=== PATIENT | male | born 1955 | race Two or more races ===

== ENCOUNTER 2017-02-14 10:24 | Day surgery (SDC) | payer OTHER, MEDICAID ==
[2017-02-14] MEDS ORDERED: LR 1,000 ML IV ONE (10:47)
[2017-02-14] MEDS ORDERED: LIDOCAINE 1% 5 ML SDV ID PRN (10:47)
[2017-02-14 11:35] LABS: ANION GAP 10 mEq/L (8-16); CALCIUM 9.1 mg/dL (8.5-10.4); CARBON DIOXIDE 23 mEq/l (22-31); CHLORIDE 109 mEq/L (97-110); CREATININE 0.6 mg/dL (0.7-1.3); GLOMERULAR FILTRATION RATE > 60; GLUCOSE 95 mg/dL (70-100); POTASSIUM 4.6 mEq/L (3.5-5.2); SODIUM 142 mEq/L (134-144); SPECIMEN HEMOLYSIS 121
[2017-02-14] MEDS ORDERED: MIDAZOLAM 2 MG/2 ML VIAL ONE (13:12)
[2017-02-14] MEDS ORDERED: PROPOFOL/EMULSION 500 MG/50 ML BOTTLE IV ONE (13:18)
[2017-02-14] MEDS ORDERED: fentaNYL 100 MCG/2 ML INJ ONE ×2 (13:18→14:09)
--- NOTE | 2017-02-14 14:19 | GPN ---
[f rep st] PROCEDURE NOTE DATE OF PROCEDURE: 02/14/2017 PROCEDURE PERFORMED: Colonoscopy with polypectomy. INDICATION: Surveillance of a personal history of colon polyps. CONSENT: Procedure consent was obtained from the patient after the risks and benefits of colonoscop y and monitored anesthesia care were discussed in detail. All questions were answered and informed consent was obtained. The patient is competent to make his own medical decisions. COMPLICATIONS: None. ESTIMATED BLOOD LOSS: None. MODEL BUILDER: Santosh Thomas MD ENDOSCOPY STAFF: Cherry and . ANESTHESIOLOGY: Provided by Dr. Rosario. DESCRIPTION OF PROCEDURE: The patient was placed into the left lateral decubitus position. Propofo l was administered through his IV until he was comfortable. A digital rectal exam was performed. T he Olympus endoscope was placed into the anal canal and advanced into the cecum, identified by the a ppendiceal orifice and ileocecal valve, as well as the confluence of the tenia coli. All mucosal dubose rfaces were examined in their entirety and the retroflexed view of the rectum was performed. The qu ality of the bowel cleanse was excellent. Digital rectal exam revealed external and internal hemorrhoids. The largest internal hemorrhoid was grade 2 in size. The prostate was smooth and without mass or lesion. The sphincter tone was somew hat diminished, but this may be due to propofol effect. The Olympus endoscope was placed into the a nal canal and advanced into the cecum with some difficulty through the sigmoid colon due to looping. Manual pressure was provided to allow intubation of the cecum. Upon withdrawal of the Olympus end oscope, a 6 mm transverse colon polyp was identified. This was sessile in nature and removed comple tely with a cold biopsy technique. The sigmoid colon was redundant and tortuous but otherwise unrem arkable. A retroflexed view of the rectum revealed grade 2 internal hemorrhoids but was otherwise u nremarkable. IMPRESSION: 1. 6 mm transverse colon polyp, removed by cold biopsy technique entirely and sent to Pathology for analysis. 2. Tortuous sigmoid colon. 3. Grade 2 internal hemorrhoids. 4. Small non-thrombosed external hemorrhoids. RECOMMENDATIONS: 1. Pathology results will be obtained. 2. A surveillance colonoscopy in 5 years is recommended. 3. He may resume aspirin for cardioprotective benefits which he normally takes. 4. High-fiber diet. 5. Follow up in GI clinic as previously planned. Gene #: [id number]/MODL
--- NOTE | 2017-02-14 14:29 | GPN ---
[f rep st] PROCEDURE NOTE DATE OF PROCEDURE: 02/14/2017 PROCEDURE PERFORMED: Esophagogastroduodenoscopy. ASSISTANTS: Per endoscopy staff, include Cherry and Judah. ANESTHESIOLOGY: Dr. Ayoub. PROCEDURE COMPLICATIONS: None. ESTIMATED BLOOD LOSS: 0 mL. PROCEDURE INDICATION: Chest pain, heartburn. PROCEDURE DESCRIPTION: Consent was obtained from the patient after the risks of endoscopy and monit ored anesthesia care were discussed in detail. Informed consent was obtained from the patient. He is competent to make his own medical decisions. Procedure monitoring is continuous including blood pressure, heart rate, telemetry, oxygen saturation, and respiratory rate. DESCRIPTION OF PROCEDURE: The patient was placed into the left lateral decubitus position with the head of the bed at 30 degrees. An oral bite block was placed. Oxygen was administered. Propofol w as given by IV. Once the patient was comfortable, the Olympus endoscope was placed into the hypopha rynx. The tubular esophagus was intubated under direct visualization. The endoscope was ultimately advanced into the second portion of the duodenum and all mucosal surfaces were examined including a retroflexed view of the gastric cardia. FINDINGS: The esophagus exhibited a ringed appearance with longitudinal furrows in the middle esoph amber. The GE junction and Z-line were located at 36 cm and were regular and without abnormality. B iopsies of the middle of the esophagus were taken for evaluation of possibly eosinophilic changes gi jayson the ringed appearance to the esophagus. The stomach was normal in its entirety including a retroflexed view of the cardia. The pylorus was patent and normal. The duodenum was normal to the second portion. IMPRESSIONS: 1. Heartburn. 2. Chest pain, noncardiac, although the cause of this is unknown; the ringed appearance to the esop hagus with longitudinal furrows do suggest the possibility of eosinophilic esophagitis and biopsies for this were taken. 3. The stomach and duodenum were normal in their entirety without abnormality. RECOMMENDATIONS: 1. Continue outpatient medications. 2. Await biopsy results from the esophagus. 3. Colonoscopy for surveillance of colon polyps will be performed today under the same anesthesia. 4. Follow up will be in the GI office to review his biopsies and discuss treatment planning within the next few weeks. 5. Soft mechanical diet for today. 6. Avoid nonsteroidal medications but cardioprotective aspirin is appropriate. /[id number]/MODL
== END 2017-02-14 15:25 | disposition home or self-care (01) ==
LOC: FSGY 10:24
PROVIDERS: ATTEND Internal Medicine Gastroenterology
PROC: 0DB58ZX Excision of Esophagus, Via Natural or Artificial Opening Endoscopic, Diagnostic (ICD-10-PCS; principal; 2017-02-14 12:00)
PROC: 0DJ08ZZ Inspection of Upper Intestinal Tract, Via Natural or Artificial Opening Endoscopic (ICD-10-PCS; principal; 2017-02-14 12:00)
PROC: 0DJD8ZZ Inspection of Lower Intestinal Tract, Via Natural or Artificial Opening Endoscopic (ICD-10-PCS; principal; 2017-02-14 12:00)
PROC: 0DBL7ZX Excision of Transverse Colon, Via Natural or Artificial Opening, Diagnostic (ICD-10-PCS; principal; 2017-02-14 12:00)
DX: R12 Heartburn (principal); R07.9 Chest pain, unspecified; D12.3 Benign neoplasm of transverse colon; K64.1 Second degree hemorrhoids; I25.10 Atherosclerotic heart disease of native coronary artery without angina pectoris; I25.2 Old myocardial infarction; Z95.1 Presence of aortocoronary bypass graft; I10 Essential (primary) hypertension; Z86.010 Personal history of colon polyps
CPT/HCPCS: J2250; J2704; J3010

== ENCOUNTER 2017-12-12 13:58 | Observation (INO) | payer OTHER, MEDICAID ==
--- NOTE | 2017-12-12 14:11 | CPEKG ---
Heart Rate: 57 RR Interval: 1053 P-R Interval: 168 QRSD Interval: 100 QT Interval: 420 QTC Interval: 409 P Hartshorne: 49 QRS Hartshorne: 24 T Wave Hartshorne: 45 EKG Severity - BORDERLINE ECG - EKG Impression: SINUS RHYTHM EKG Impression: PROBABLE LEFT ATRIAL ABNORMALITY Electronically Signed By: Shahrzad Almanzar 12-Dec-2017 16:27:27
--- NOTE | 2017-12-12 14:16 | EDPHY ---
H & P Stated Complaint: FISHMAN, CP HPI/ROS: CHIEF COMPLAINT: Chest pain, headache HISTORY OF PRESENT ILLNESS: This patient is a Indian speaking 62 year old male with history of CABG, hypertension, diabetes, and hyperlipidemia complaining of chest pain and headache onset today. He recently returned from [place] where he was prescribed additional antihypertensives (Micardis 80mg) due to hypertension with BP in the 180s systolic. He sought care at that time due to dizziness and blurred vision, which have resolved. He has been recording his blood pressure at home and taking his medications as directed. , he woke from sleep suddenly with chest pain. Monday he had continued chest pain. Today, he continued to have headache and chest pain, and became concerned regarding his chest pain. He has not taken any OTC medications for headache. Currently, he feels fairly well but endorses a small amount of left- sided chest pain. Nothing seems to make it better or worse. He thinks he feels much better in general since his blood pressure is reduced. He is followed by the [facility] here in [place]. He denies current headache, shortness of breath, vomiting, diarrhea, urinary complaints, or other associated symptoms. HPI obtained via flower cutter at bedside. REVIEW OF SYSTEMS: A ten point review of systems was performed and is negative with the exception of the items mentioned in the HPI. Past medical history: 1. Hypertension (Lisinopril 20mg, Micardis 80mg, Metoprolol 25mg) 2. Gastritis (Omeprazole 40mg) 3. Hyperlipidemia (Atorvastatin 40mg) 4. Diabetes (diet controlled) 5. CAD (ASA 81mg at night) Past surgical history: CAD s/p 3-vessel bypass surgery in 2008. Family history: Diabetes. Negative for heart or vascular disease. Social history: Indian-speaking only. . Nonsmoker. No alcohol use. Retired. General Appearance: Alert. Vital signs reviewed. 139/81 Eyes: Pupils equal and round, no conjunctival injection, no discharge. Anicteric. ENT, Mouth: Mucous membranes are moist, no oropharyngeal erythema or edema. Neck: No lymphadenopathy, supple. Respiratory: Lungs are clear to auscultation; no wheezes, rales, or rhonchi. Cardiovascular: Regular rate and rhythm; no murmur, rub, or gallop. Gastrointestinal: Abdomen is soft and nontender, no masses or organomegaly, bowel sounds normal. Skin: Warm and dry, no rashes on exposed skin, normal color. Back: Nontender to palpation over the thoracolumbar spine. No CVAT. Extremities: No lower extremity edema, no calf tenderness or swelling. Neurological: Alert and oriented. Moving all four extremities easily and equally. Psychiatric: Normal affect. - Personal History Current Tetanus/Diphtheria Vaccine: Yes Current Tetanus Diphtheria and Acellular Pertussis (TDAP): Yes Tetanus Vaccine Date: <10 YEARS - Medical/Surgical History Hx Asthma: No Hx Chronic Respiratory Disease: No Hx Diabetes: Yes Hx Cardiac Disease: Yes Hx Renal Disease: No Hx Cirrhosis: No Hx Alcoholism: No Hx HIV/AIDS: No Hx Splenectomy or Spleen Trauma: No Other PMH: PMH:HTN,DM,gastritis. PSH:CABG 3x, - Social History Smoking Status: Never smoked Constitutional: Initial Vital Signs Temperature (C) 36.9 C 12/12/17 14:08 Heart Rate 60 12/12/17 14:08 Respiratory Rate 20 12/12/17 14:08 Blood Pressure 140/86 H 12/12/17 14:08 O2 Sat (%) 96 12/12/17 14:08 O2 Delivery Mode Room Air Allergies/Adverse Reactions: No Known Allergies Allergy (Verified 12/12/17 14:06) Home Medications: Medication Instructions Recorded Aspirin [Aspirin 81mg (*)] 81 mg PO HS 12/12/17 Atorvastatin Calcium [Lipitor 40 40 mg PO HS 12/12/17 mg (*)] Lisinopril [Zestril 20 mg (*)] 20 mg PO DAILY 12/12/17 Metoprolol Tartrate [Lopressor 25 25 mg PO BID 12/12/17 mg (*)] Omeprazole 40 mg PO BID 12/12/17 Telmisartan 80 mg PO DAILY PRN 12/12/17 Medical Decision Making - Diagnostics EKG Interpretation: The 12 lead EKG was interpreted by myself. See hard copy and/or "tracemaster" electronic copy for interpretation. Imaging: I viewed and interpreted images myself ED Course/Re-evaluation: 62 y/o male with history of hypertension, CABG, hyperlipidemia, and diabetes presents with chest pain. Exam unremarkable. Current BP 118/74. Plan for EKG, chest x-ray, labs including CBC, chemistries, troponin. Chest x-ray negative for acute processes. Troponin negative at 0.027. Laboratory studies otherwise unremarkable. HEART score 5, admission recommended. 15:[address] Sarabia, hospitalist. She accepts admission to PCU for chest pain. Differential Diagnosis: Chest pain including but not limited to myocardial ischemia, pulmonary embolus, chest wall pain, pleural inflammation and pulmonary infectious causes. - Data Points Laboratory Results: Laboratory Results 12/12/17 14:10 12/12/17 14:10 Medications Given: Discontinued Medications Acetaminophen (Tylenol) 650 mg PO Q4HRS PRN PRN Reason: Pain, Mild/Fever, Can Take PO Stop: 06/10/18 16:09 Last Admin: 12/13/17 08:19 Dose: 650 mg Aspirin (Aspirin) 325 mg PO EDNOW ONE Stop: 12/12/17 15:55 Last Admin: 12/12/17 16:20 Dose: 325 mg Influenza Virus Vaccine Quadrival (Fluarix Quad [id number]) 0.5 ml IM .ONCE ONE Stop: 12/13/17 09:51 Last Admin: 12/13/17 13:16 Dose: Not Given Lisinopril (Zestril) 20 mg PO DAILY [facility] Stop: 06/11/18 08:59 Last Admin: 12/13/17 12:45 Dose: 20 mg Metoprolol Tartrate (Lopressor) 25 mg PO BID [facility] Stop: 06/11/18 08:59 Last Admin: 12/13/17 12:44 Dose: 25 mg Pantoprazole Sodium (Protonix) 40 mg PO DAILY [facility] Stop: 06/10/18 16:29 Last Admin: 12/13/17 12:45 Dose: 40 mg Pneumococcal Polyvalent Vaccine (Pneumovax 23) 0.5 ml IM .ONCE ONE Stop: 12/13/17 09:51 Last Admin: 12/13/17 13:16 Dose: Not Given Departure - Departure Disposition: [facility] Inpatient Acute Clinical Impression: Chest pain Qualifiers: Chest pain type: other chest pain Qualified Code(s): R07.89 - Other chest pain Condition: Fair Report Scribed for: Shahrzad Almanzar Report Scribed by: Mansi Shoemaker Date of Report: 12/12/17 Time of Report: 14:51 Physician Review and Approval Statement: 01/16/18 14:16 Portions of this note were transcribed by the auditor medical claims. I, Dr. Shahrzad Almanzar, personally performed the history, physical exam, and medical decision- making; and confirmed the accuracy of the information in the transcribed note.
[2017-12-12] MEDS ORDERED: ASPIRIN 81 MG CHEWABLE TAB ONE (14:43)
[2017-12-12 14:47] LABS: PLATELET COUNT 163 10^3/uL (150-400)
[2017-12-12] MEDS ORDERED: ASPIRIN 325 MG TAB PO ONE (15:54)
--- NOTE | 2017-12-12 15:58 | PDGENHP ---
History and Physical - Chief Complaint chest pain - History of Present Illness 62 yo male with h/o DM, hypertension, hyperlipidemia and h/o CAD s/p CABG 8 yrs ago. Five days ago, he awoke with intense chest pain. The pain persisted the following day. He describes the pain as pressure initially. He endorses increased pain with exertion. The pain improves with rest. He endorses associated SOB, nausea and diaphoresis. He is currently chest pain free. He notes his blood pressure had been high and he wonders if that caused his pain. He recently returned from [place], where his SBP's were 180's. He was prescribed additional BP meds. He takes Metoprolol and Lisinopril, Telmisartan was a new medication which he started 2 days ago. BP now is 123/76. He has pre -diabetes, notes he is diet controlled but was previously on oral meds. Other cardiac risk factors include hyperlipidemia, hypertension, and family history of CAD, no PHD. In the ED, his EKG is non-ischemic. His initial troponin is negative. He is admitted to the hospital for further evaluation. History Information - Allergies/Home Medication List Allergies/Adverse Reactions: No Known Allergies Allergy (Verified 12/12/17 14:06) Home Medications: Aspirin [Aspirin 81mg (*)] 81 mg PO HS 12/12/17 [Last Taken 12/11/17] Atorvastatin Calcium [Lipitor 40 mg (*)] 40 mg PO HS 12/12/17 [Last Taken ] Lisinopril [Zestril 20 mg (*)] 20 mg PO DAILY 12/12/17 [Last Taken 12/12/17 09: 00] Metoprolol Tartrate [Lopressor 25 mg (*)] 25 mg PO BID 12/12/17 [Last Taken ] Omeprazole 40 mg PO BID 12/12/17 [Last Taken 12/12/17] Telmisartan 80 mg PO DAILY PRN 12/12/17 [Last Taken 12/12/17 11:30] I have personally reviewed and updated: family history, medical history, social history, surgical history - Past Medical History coronary artery disease, diabetes type 2, hypertension, hyperlipidemia Additional medical history: CAD s/p CABG 2007 - Surgical History Reports: coronary bypass surgery ( 2007) - Family History Positive for: diabetes type II - Social History Smoking Status: Never smoked Alcohol Use: None Additional social history: Lives with his in [place]. He doesn't currently work, now on disability, used to work in [employer]. Review of Systems Review of Systems: ROS: 10pt was reviewed & negative except for what was stated in HPI & below Physical Exam Physical Exam: Temp Pulse Resp BP Pulse Ox 36.9 C 54 L 18 120/78 96 12/12/17 14:08 12/12/17 15:38 12/12/17 15:38 12/12/17 15:38 12/12/17 15:38 Constitutional: no apparent distress Eyes: PERRL Ears, Nose, Mouth, Throat: moist mucous membranes Cardiovascular: regular rate and rhythym, no murmur, rub, or gallop Respiratory: no respiratory distress, clear to auscultation Gastrointestinal: normoactive bowel sounds, soft, non-tender abdomen Skin: warm Musculoskeletal: full muscle strength Neurologic: AAOx3 Psychiatric: interacting appropriately Lab Data & Imaging Review 12/12/17 14:10 12/12/17 14:10 WBC 5.70 10^3/uL (3.80-9.50) 12/12/17 14:10 RBC 4.30 10^6/uL (4.40-6.38) L 12/12/17 14:10 Hgb 13.7 g/dL (13.7-17.5) 12/12/17 14:10 Hct 40.0 % (40.0-51.0) 12/12/17 14:10 MCV 93.0 fL (81.5-99.8) 12/12/17 14:10 MCH 31.9 pg (27.9-34.1) 12/12/17 14:10 MCHC 34.3 g/dL (32.4-36.7) 12/12/17 14:10 RDW 12.3 % (11.5-15.2) 12/12/17 14:10 Plt Count 163 10^3/uL (150-400) 12/12/17 14:10 MPV 10.8 fL (8.7-11.7) 12/12/17 14:10 Neut % (Auto) 49.4 % (39.3-74.2) 12/12/17 14:10 Lymph % (Auto) 34.4 % (15.0-45.0) 12/12/17 14:10 [place] % (Auto) 13.0 % (4.5-13.0) 12/12/17 14:10 Eos % (Auto) 1.6 % (0.6-7.6) 12/12/17 14:10 Baso % (Auto) 0.5 % (0.3-1.7) 12/12/17 14:10 Nucleat RBC Rel Count 0.0 % (0.0-0.2) 12/12/17 14:10 Absolute Neuts (auto) 2.82 10^3/uL (1.70-6.50) 12/12/17 14:10 Absolute Lymphs (auto) 1.96 10^3/uL (1.00-3.00) 12/12/17 14:10 Absolute Monos (auto) 0.74 10^3/uL (0.30-0.80) 12/12/17 14:10 Absolute Eos (auto) 0.09 10^3/uL (0.03-0.40) 12/12/17 14:10 Absolute Basos (auto) 0.03 10^3/uL (0.02-0.10) 12/12/17 14:10 Absolute Nucleated RBC 0.00 10^3/uL (0-0.01) 12/12/17 14:10 Immature Gran % 1.1 % (0.0-1.1) 12/12/17 14:10 Immature Gran # 0.06 10^3/uL (0.00-0.10) 12/12/17 14:10 Sodium 140 mEq/L (135-145) 12/12/17 14:10 Potassium 5.1 mEq/L (3.5-5.2) 12/12/17 14:10 Chloride 104 mEq/L (97-110) 12/12/17 14:10 Carbon Dioxide 24 mEq/l (22-31) 12/12/17 14:10 Anion Gap 12 mEq/L (8-16) 12/12/17 14:10 BUN 18 mg/dL (7-23) 12/12/17 14:10 Creatinine 0.8 mg/dL (0.7-1.3) 01/16/18 14:10 Estimated GFR > 60 12/12/17 14:10 Glucose 114 mg/dL (70-100) H 12/12/17 14:10 Calcium 9.1 mg/dL (8.5-10.4) 12/12/17 14:10 Troponin I 0.027 ng/mL (0.000-0.034) 12/12/17 14:10 Specimen Hemolysis 149 12/12/17 14:10 Visualized and Interpreted Chest x-ray results: Yes Chest X-Ray results: no infiltrate Visualized and Interpreted EKG results: Yes EKG Interpretation: Positive for: normal sinsus rhythm Assessment & Plan Assessment: Chest pain in a 62 yo male with h/o CAD and prior CABG - Pain occurred at rest 5 days ago, but was associated with nausea, diaphoresis and SOB, which is concerning. Heart score 5. Initial EKG non-ischemic, trop neg. He is chest pain free now. -admit to PCU / tele -given full dose ASA -cont BB, statin, prn ntg -trend trop -treadmill NM stress test in am given risk factors (DM, htn, hld, +FHx, prior CABG) Hypertension - BP normal today with addition of ARB in [place] -cont outpt meds once med rec completed Hyperlipidemia - cont statin, check lipid status in am Pre-diabetes - diet controlled, bg 114 on arrival, check a1c. Full code DVT PPLX - SCD's, consider lovenox if prolonged hospitalization Dispo - obs
[2017-12-12] MEDS ORDERED: ACETAMINOPHEN 325 MG TAB PO PRN (16:10)
[2017-12-12] MEDS ORDERED: ONDANSETRON 4 MG/2 ML VIAL IVP PRN (16:10)
[2017-12-12] MEDS ORDERED: ONDANSETRON DISINTEGRATING 4 MG TAB PO PRN (16:10)
[2017-12-12] MEDS ORDERED: HYOSCYAMINE SULFATE 0.125 MG TAB PO PRN (16:15)
[2017-12-12] MEDS ORDERED: LIDOCAINE 2% VISCOUS 15 ML UDCUP PO PRN (16:15)
[2017-12-12] MEDS ORDERED: MAG HYDROX/AL HYDROX/SIMETH 30 ML UDCUP PO PRN (16:15)
[2017-12-12] MEDS: PANTOPRAZOLE SODIUM 40 MG TAB PO SCH (18:36)
[2017-12-13] MEDS ORDERED: NITROGLYCERIN 0.4 MG BTL SL PRN (01:19)
[2017-12-13] MEDS ORDERED: LISINOPRIL 20 MG TAB PO SCH (09:00)
[2017-12-13] MEDS ORDERED: TELMISARTAN 40 MG TAB PO PRN (09:00)
[2017-12-13] MEDS ORDERED: METOPROLOL TARTRATE 25 MG TAB PO SCH (09:00)
[2017-12-13] MEDS ORDERED: PANTOPRAZOLE SODIUM 40 MG TAB PO SCH (09:00)
--- NOTE | 2017-12-13 09:04 | CPEKG ---
Heart Rate: 58 RR Interval: 1034 P-R Interval: 156 QRSD Interval: 100 QT Interval: 440 QTC Interval: 433 P Rudd: 70 QRS Rudd: 52 T Wave Rudd: 68 EKG Severity - BORDERLINE ECG - EKG Impression: SINUS RHYTHM EKG Impression: PROBABLE LEFT ATRIAL ABNORMALITY Electronically Signed By: Tim Banks 17-Dec-2017 10:35:51
[2017-12-13] MEDS ORDERED: PNEUMOCOCCAL 0.5ML VACCINE VIAL IM ONE (09:50)
[2017-12-13] MEDS ORDERED: FLU VACC QS 2017-18 (3YR+)/PF 0.5 ML SYR (FLUARIX QUAD) IM ONE (09:50)
--- NOTE | 2017-12-13 10:14 | ASMTCASEMG ---
Living Arrangements What is your living Answers: With Spouse arrangement? Who do you live with? Type Of Residence What kind of residence do Answers: House you live in? Discharge Plan Comments Coordination Status Comments Notes: Pt is a 62 y/o man admitted for chest pain. Pt is having a stress test at some point during this hospitalization. Pt will most likely d/c independent when medically stable. CM available for changes. Plan: Independent Date Signed: 12/13/2017 10:14 AM Electronically Signed By:CITLALY Avalos
[2017-12-13 12:44] VITALS: RESP 14
[2017-12-13] MEDS: PANTOPRAZOLE SODIUM 40 MG TAB PO SCH (12:45)
--- NOTE | 2017-12-13 13:32 | CPR ---
[f rep st] NONINVASIVE CARDIAC PROCEDURE REPORT PROCEDURE PERFORMED: Exercise treadmill MPI study. INDICATION FOR PROCEDURE: Chest pressure, known history of coronary artery disease and bypass surgery. PRE: The patient is Sierra Leonean-speaking only and is seen with a professional armed security guard. After obtaining informed consent, the patient was placed on electrocardiogram. Initial EKG showing sinus rhythm, normal axis, RSR prime noted in V1, incomplete right bundle branch block, no significant ST or T-wave abnormalities. The patient denies any chest pain, shortness of breath, or symptoms suggesting ischemia. Initial blood pressure of 128/64, saturating 96% on room air. STRESS: The patient was placed on exercise treadmill. Following standard Nathaniel protocol, the following findings: 1. Patient exercised for 10 minutes. 2. 10.9 METS. 3. The patient obtained a heart rate of 152 BPM which was 96% of MPHR. 4. Patient had no chest pain or symptoms suggesting ischemia through testing. 5. Patient had no significant ST shift at peak exercise suggesting ischemia. 6. Patient had no arrhythmias noted during rest, stress, or recovery phases. 7. BP response: Resting BP 128/64. Peak blood pressure was 200/80. 8. Patient maintained SpO2 greater than 90% throughout testing. 9. Testing was stopped due to maximum effort. 10. Villafuerte treadmill score of 10, placing patient at low cardiovascular risk. RECOVERY: Patient recovered for 5 minutes, remained asymptomatic of symptoms suggesting ischemia. During that 5 minutes, his blood pressure and heart rate returned back to baseline. His vital signs were stable, remained asymptomatic. The patient was taken to Nuclear Medicine for post-stress imaging. IMPRESSION: A 62-year-old male with known history of coronary artery disease with previous coronary artery bypass grafting. Reporting episode of chest pressure last evening. Underwent exercise MPI study for evaluation of ischemia. No significant ST shifts at peak exercise suggesting of ischemia. No symptoms. No arrhythmias. Villafuerte treadmill score of 10, placing patient at low cardiovascular risk. Stress test results called to Hospitalist services. /[id number]/MODL MTDD
--- NOTE | 2017-12-13 14:58 | PDDCSUM ---
Discharge Summary Discharge Summary: 62 yo male with hx of CAD admitted with CP Trops negative Treadmill NM stress test with no acute findings no CP today Lipid panel at [facility] will d/c to day. no changes to home meds f/u with pcp in one week Ddx: -CAD -Chest pain -HLD -DM Exam: NAD AAOX3 RRR CTAB S/NT/ND NO LE EDEMA MEDS: SEE MED REC F/U: WITH PCP PER ABOVE TOTAL TIME SPENT ON D/C IS 35 MINS
[2017-12-13 15:29] VITALS: BP 109/56; PULSE 59; TEMP 97.8; O2SAT 95
[2017-12-13] MEDS ORDERED: ATORVASTATIN CALCIUM 40 MG TAB PO SCH (21:00)
[2017-12-13] MEDS ORDERED: ASPIRIN 81 MG CHEWABLE TAB PO SCH (21:00)
--- NOTE | 2017-12-14 13:57 | ASDISCHSUM ---
Discharge Information Plan Status:Home with No Needs Medically Cleared to Leave:12/12/2017 Discharge Date:12/13/2017 04:06 PM D/C Disposition: ADT D/C Disposition:Home, Routine, Self-Care Projected Discharge Date:12/13/2017 12:00 AM Transportation at D/C: Discharge Delay Reason: Follow-Up Date:12/13/2017 12:00 AM Discharge Slot: Final Diagnosis: Placement Information Patient Contact Information Contact Name:JESSENIA Relationship: Address:[address] City:[place] Alternate Phone: [facility]/Zip Code:[place] [address] Email: Financial Information Financial Class: Primary Plan Desc:MEDICARE OUTPATIENT Primary Plan Number:[id number] Secondary Plan Desc:MEDICAID [place] Secondary Plan Number:[id number] Assessment Information [facility] Initial CM Assessment Living Arrangements What is your living Answers: With Spouse arrangement? Who do you live with? Type Of Residence What kind of residence do Answers: House you live in? Discharge Plan Comments Coordination Status Comments Notes: Pt is a 62 y/o man admitted for chest pain. Pt is having a stress test at some point during this hospitalization. Pt will most likely d/c independent when medically stable. CM available for changes. Plan: Independent Date Signed: 12/13/2017 10:14 AM Electronically Signed By:CITLALY Avalos Intervention Information
== END 2017-12-13 16:06 | disposition home or self-care (01) ==
LOC: F2W 18:17
PROVIDERS: ADMIT Hospitalist; ATTEND Family Medicine
DX: R07.9 Chest pain, unspecified (principal); R51 Headache; I25.10 Atherosclerotic heart disease of native coronary artery without angina pectoris; E11.9 Type 2 diabetes mellitus without complications; K29.70 Gastritis, unspecified, without bleeding; I10 Essential (primary) hypertension; E78.5 Hyperlipidemia, unspecified; I25.2 Old myocardial infarction; Z95.1 Presence of aortocoronary bypass graft; Z23 Encounter for immunization
CPT/HCPCS: 71046; 78452; 93005; 93017; 99285; A9500; G0378

== ENCOUNTER 2018-05-25 14:46 | Emergency (ER) | payer OTHER, MEDICAID ==
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
[2018-05-25] MEDS ORDERED: IOPAMIDOL (ISOVUE-300) 100 ML BTL ONE (16:15)
[2018-05-25 17:24] VITALS: BP 136/73
== END 2018-05-25 17:27 | disposition home or self-care (01) ==
DX: S20.219A Contusion of unspecified front wall of thorax, initial encounter (principal); S16.1XXA Strain of muscle, fascia and tendon at neck level, initial encounter; V49.40XA Driver injured in collision with unspecified motor vehicles in traffic accident, initial encounter; Y92.410 Unspecified street and highway as the place of occurrence of the external cause; Y99.8 Other external cause status; I25.810 Atherosclerosis of coronary artery bypass graft(s) without angina pectoris; Y93.89 Activity, other specified; E11.9 Type 2 diabetes mellitus without complications; I10 Essential (primary) hypertension; Z79.82 Long term (current) use of aspirin
CPT/HCPCS: 82435-PO; 82565-PO; 82947-PO; 84132-PO; 84295-PO; 84520-PO; 85014-PO; Q9967

== ENCOUNTER 2019-02-26 10:25 | Emergency (ER) | payer OTHER, MEDICAID ==
--- NOTE | 2019-02-26 11:02 | EDPHY ---
H & P Time Seen by Provider: 02/26/19 10:50 HPI/ROS: CHIEF COMPLAINT: High blood pressure, headache HISTORY OF PRESENT ILLNESS: The patient is a 63-year-old male with a history of hypertension, high cholesterol, diabetes and coronary disease who presents emergency department with multiple complaints. Patient states that 3 days ago he became dizzy and fell. He denied any associated shortness of breath or chest pain. He struck his head. He did not lose consciousness. He had a mild posterior headache after the fall. His FISHMAN improved but is intermittent. He has no focal weakness or numbness. No visual change. No neck pain. The patient has had no vomiting but does have occasional nausea. Patient states that he checks his blood pressure regularly. He has had episodic high blood pressure to the 200s. At this time the patient feels well. He has no headache. No focal weakness or numbness. He describes mild nausea. REVIEW OF SYSTEMS: 10 systems were reveiwed and are negative with the exception of the elements mentioned in the history of present illness. Past Medical/Surgical History: Includes coronary artery disease, diabetes, hypertension, high cholesterol, gastritis Past surgical history: CABG Social history: The patient does not smoke Smoking Status: Never smoked Physical Exam: 37.4, 149/71, 73, 16, 96% on room air GENERAL: Well-appearing, in no acute distress, alert. HEENT: Eyes normal to inspection, normal pharynx, no signs of dehydration. NECK: Normal, supple. RESPIRATORY: Clear to auscultation bilaterally, no rales, rhonchi or wheezing. CVS: Regular rate and rhythm, no rubs, murmurs, or gallops. ABDOMEN: Soft, nontender, nondistended, no organomegaly. BACK: Normal to inspection, no CVA tenderness. SKIN: Normal color, no rash, warm, dry. No pallor. EXTREMITIES: No pedal edema, no calf tenderness, no Homans sign or cords, no joint swelling. NEURO/PSYCH: Higher functions: Alert and Oriented x3. Normal speech and cognition. Normal mood and affect. Cranial nerves: Normal as tested. Cerebellar: Normal as tested. Good finger to nose, good [id number], normal gait. Peripheral exam: Normal motor exam. Normal sensation. Normal reflexes. Constitutional: Initial Vital Signs Temperature (C) 37.4 C 02/26/19 10:28 Heart Rate 73 04/02/19 10:28 Respiratory Rate 16 02/26/19 10:28 Blood Pressure 149/71 H 02/26/19 10:28 O2 Sat (%) 96 02/26/19 10:28 O2 Delivery Mode Room Air Allergies/Adverse Reactions: No Known Allergies Allergy (Verified 02/26/19 10:31) Home Medications: Medication Instructions Recorded Aspirin [Aspirin 81mg (*)] 81 mg PO HS 12/12/17 Atorvastatin Calcium [Lipitor 40 40 mg PO HS 12/12/17 mg (*)] Lisinopril [Zestril 20 mg (*)] 20 mg PO DAILY 12/12/17 Metoprolol Tartrate [Lopressor 25 25 mg PO BID 12/12/17 mg (*)] Omeprazole 40 mg PO BID 12/12/17 Telmisartan 80 mg PO DAILY PRN 12/12/17 Allopurinol 05/25/18 Flomax 05/25/18 HCTZ (*) 02/26/19 Medical Decision Making - Diagnostics Imaging Results: Imaging Impressions Head CT 02/26/19 12:16 Impression: Normal brain. No acute intracranial hemorrhage or swelling. Findings discussed with Emergency Department physician, HERMAN EVANS at 12:44. ED Course/Re-evaluation: In the emergency department lang interpreter was used. I discussed possible etiologies with the patient. I answered all his questions. IV was placed. Laboratory studies, head CT and EKG were obtained. EKG shows normal sinus rhythm, normal rate, normal axis, normal intervals. There are no ST or T-wave abnormalities. EKG is normal as interpreted by me. CBC and chemistry unremarkable. Troponin was negative. Head CT: No acute disease noted. Please refer the dictated report. 1335: On recheck the patient was doing well. No focal deficits. I discussed results with the patient. I answered all his questions. He was given warnings prior to leaving. Differential Diagnosis: My differential includes but is not limited to dysrhythmia, ACS, acute TN, electrolyte abnormality, sugar abnormality, CVA, dissection, aneurysm, subarachnoid hemorrhage, subdural hematoma, epidural hematoma, hypertensive urgency, hypertensive emergency - Data Points Laboratory Results: Laboratory Results 02/26/19 10:45 02/26/19 10:45 02/26/19 02/26/19 02/26/19 12:21 10:45 10:45 WBC 5.16 10^3/uL 10^3/uL (3.80-9.50) RBC 4.80 10^6/uL 10^6/uL (4.40-6.38) Hgb 15.1 g/dL g/dL (13.7-17.5) Hct 43.8 % % (40.0-51.0) MCV 91.3 fL fL (81.5-99.8) MCH 31.5 pg pg (27.9-34.1) MCHC 34.5 g/dL g/dL (32.4-36.7) RDW 13.3 % % (11.5-15.2) Plt Count 191 10^3/uL 10^3/uL (150-400) MPV 11.3 fL fL (8.7-11.7) Neut % (Auto) 63.7 % % (39.3-74.2) Lymph % (Auto) 26.7 % % (15.0-45.0) [place] % (Auto) 7.8 % % (4.5-13.0) Eos % (Auto) 0.8 % % (0.6-7.6) Baso % (Auto) 0.6 % % (0.3-1.7) Nucleat RBC Rel Count 0.0 % % (0.0-0.2) Absolute Neuts (auto) 3.29 10^3/uL 10^3/uL (1.70-6.50) Absolute Lymphs (auto) 1.38 10^3/uL 10^3/uL (1.00-3.00) Absolute Monos (auto) 0.40 10^3/uL 10^3/uL (0.30-0.80) Absolute Eos (auto) 0.04 10^3/uL 10^3/uL (0.03-0.40) Absolute Basos (auto) 0.03 10^3/uL 10^3/uL (0.02-0.10) Absolute Nucleated RBC 0.00 10^3/uL 10^3/uL (0-0.01) Immature Gran % 0.4 % % (0.0-1.1) Immature Gran # 0.02 10^3/uL 10^3/uL (0.00-0.10) Sodium 135 mEq/L mEq/L (135-145) Potassium 4.0 mEq/L mEq/L (3.5-5.2) Chloride 101 mEq/L mEq/L (97-110) Carbon Dioxide 23 mEq/l mEq/l (22-31) Anion Gap 11 mEq/L mEq/L (6-14) BUN 20 mg/dL mg/dL (7-23) Creatinine 0.9 mg/dL mg/dL (0.7-1.3) Estimated GFR > 60 Glucose 183 mg/dL H mg/dL (70-100) Calcium 9.3 mg/dL mg/dL (8.5-10.4) POC Troponin I 0.00 ng/mL ng/mL (0.00-0.08) Point of Care Test Results: Chemistry 02/26/19 12:21 POC Troponin I 0.00 ng/mL ng/mL (0.00-0.08) Departure - Departure Disposition: Home, Routine, Self-Care Clinical Impression: Dizziness Headache Qualifiers: Headache type: unspecified Headache chronicity pattern: acute headache Intractability: intractable Qualified Code(s): R51 - Headache Condition: Good Instructions: Acute Headache (ED), Hypertension (ED) Additional Instructions: Call your doctor today or tomorrow to make the next available appointment. Continue to take your medications as directed. Return to the emergency department with increasing headache, weakness, numbness, chest pain, shortness of breath or any other concerns. Referrals: Etelvina Olivares MD [Primary Care Provider] - 2-3 days, call for appt.
[2019-02-26 12:44] LABS: PLATELET COUNT 191 10^3/uL (150-400)
[2019-02-26 13:44] VITALS: BP 126/71
--- NOTE | 2019-02-26 15:03 | CPEKG ---
Test Reason : OPEN Blood Pressure : / mmHG Vent. Rate : 054 BPM Atrial Rate : 054 BPM P-R Int : 165 ms QRS Dur : 101 ms QT Int : 439 ms P-R-T Axes : 050 031 069 degrees QTc Int : 416 ms Sinus rhythm Probable left atrial enlargement Abnormal R-wave progression, early transition Confirmed by Herman Garcia [id number]) on 02/26/2019 3:03:04 PM Referred By: HERMAN GARCIA Confirmed By:Herman Garcia
== END 2019-02-26 14:01 | disposition home or self-care (01) ==
DX: R51 Headache (principal); I10 Essential (primary) hypertension; Z95.5 Presence of coronary angioplasty implant and graft; E11.9 Type 2 diabetes mellitus without complications; E78.00 Pure hypercholesterolemia, unspecified; Z79.4 Long term (current) use of insulin
CPT/HCPCS: 84484-ER